=== PATIENT | female | born 1955 | race Caucasian/White ===

== ENCOUNTER 2016-09-02 15:49 | Inpatient (IN) | END 2016-09-23 13:20 | disposition home or self-care (01) | DRG 824 | DX: C90.00 Multiple myeloma not having achieved remission (principal); C79.51 Secondary malignant neoplasm of bone; K57.20 Diverticulitis of large intestine with perforation and abscess without bleeding; M84.58XA Pathological fracture in neoplastic disease, other specified site, initial encounter for fracture; D64.9 Anemia, unspecified; M54.9 Dorsalgia, unspecified; R07.9 Chest pain, unspecified; D72.829 Elevated white blood cell count, unspecified; D47.2 Monoclonal gammopathy ==

== ENCOUNTER → 2017-03-06 | Outpatient (CLI) | END | disposition home or self-care (01) ==

== ENCOUNTER 2017-09-07 17:39 | Emergency (ER) | END 2017-09-08 01:42 | disposition home or self-care (01) ==